=== PATIENT | male | born 1960 | race Caucasian/White ===

== ENCOUNTER 2016-09-30 10:26 | Emergency (ER) | payer SELFPAY ==
[2016-09-30 11:08] VITALS: TEMP 98.7; BMI 29.2
[2016-09-30] MEDS ORDERED: ALBUTEROL 6.7 GM MDI INH ONE (12:00)
--- NOTE | 2016-09-30 12:33 | DIRPT ---
CLINICAL DATA: Cough, shortness of breath and low-grade fever. EXAM: CHEST 2 VIEW COMPARISON: 08/24/2004 FINDINGS: Normal sized heart. Clear lungs. The lungs remain hyperexpanded with mild central peribronchial thickening. Mild thoracic spine degenerative changes. IMPRESSION: No acute abnormality. Stable mild changes of COPD and chronic bronchitis. Electronically Signed By: Jackson Carey M.D. On: 09/30/2016 12:30
--- NOTE | 2016-09-30 12:45 | EDPRACDOC ---
- General Information Chief Complaint: Flu-Like Symptoms Stated Complaint: COUGH/CONGESTION Time Seen by Provider: 09/30/16 11:46 Information Source: Patient Mode Of Arrival: Car Home Medications: Home Medications Acetaminophen with Codeine [TYLENOL WITH CODEINE; [employer] with Codeine] 5 ml PO Q4-6H PRN #120 ml 09/30/16 Amoxicillin Trihydrate [Amoxicillin] 500 mg PO TID #30 tab 09/30/16 Benzonatate [Tessalon] 100 mg PO TID #20 per 09/30/16 Prednisone [Deltasone, Orasone] 2 tabs PO DAILY #20 tab 09/30/16 Allergies/Adverse Reactions: Allergies Allergy/AdvReac Type Severity Reaction Status Date / Time No Known Drug Allergies Allergy Unknown Verified 09/30/16 10:44 - History of Present Illness Symptoms Started: 1 week HPI: PT PRESENTS TODAY WITH COUGH/CONGESTION X 1 WEEK. STATES FEVER THAT BROKE AT THE BEGINNING OF SYMPTOMS. HEAVY SMOKER. DOES NOT FOLLOW PCP. STATES NO PMH /MEDS. NO APPARENT DISTRESS AT THIS TIME. DENIES NESBITT, CP, ABD PAIN, N/V/D. MILD PRESLEY. Symptoms: Reports: Cough, Fever Recent Medications: Reports: None Relevant History Of: Reports: None Shortness of Breath: Mild Cough Frequency: Persistent Cough Description: Reports: Productive (YELLOW), Strong, Congested Rhinorrhea: Reports: None Ear Symptoms: Reports: None Associated Signs and Symptoms: Reports: Cough, Fever, Nasal Symptoms ED Past Medical History - History Reviewed Yes Nurses notes reviewed and agree except as marked - Patient Medical History Psychological History: Denies: Depression - Social Medical History Smoking Status: Heavy tobacco smoker (5 or more cigarettes/day or daily pipe/ cigar) EDM Review of Systems - Review of Systems ROS Negative Except as Marked: Yes All systems reviewed and were negative except as marked Constitutional: Fever, Fatigue Eyes: No Symptoms Reported Ears: No Symptoms Reported Throat: Pain Nose: Congestion Respiratory: Cough Cardiovascular: No Symptoms Reported Gastrointestinal: No Symptoms Reported Neurological: No Symptoms Reported Musculoskeletal: No Symptoms Reported Integumentary: No Symptoms Reported - Physical Exam Constitutional: Alert (Awake), No apparent distress Oriented to: Time, Person, Place Last recorded Vital Signs: Last Vital Signs Temp 98.7 F 09/30/16 11:05 Pulse 87 09/30/16 11:05 Resp 20 09/30/16 11:59 BP 167/83 09/30/16 11:05 Pulse Ox 96 09/30/16 11:05 Oxygen Pulse Oxygen Saturation 96 O2 Device Room Air Oxygen Flow Rate Fraction of Inspired Oxygen ( FIO2) - HEENT Head: Normal Eye Exam: Normal Oropharynx: Normal Tympanic Membrane: Normal Nose: Congestion Neck: Normal, Denies Pain, Midline - Respiratory/Cardiovascular Respiratory: Rhonchi (MODERATE; DIFFUSE) Cardiovascular: Normal - GI Palpation: Normal Tenderness: Non tender - Musculoskeletal Back: Normal Extremities: Normal - Integumentary Skin: Normal Lymphatics: Normal - Neurologic Mood Description: Normal Thought: Coherent Perception: Normal Decision Time to Discharge: 12:50 - Departure Disposition: Home Condition: Stable Final Diagnosis: Bronchopneumonia COPD (chronic obstructive pulmonary disease) Qualifiers: COPD type: unspecified COPD Qualified Code(s): J44.9 - Chronic obstructive pulmonary disease, unspecified Instructions: How to Stop Smoking (ED), Cigarette Smoking and Your Health (GEN) , COPD (Chronic Obstructive Pulmonary Disease) (ED), Community Acquired Pneumonia (ED) Education/Counseling Given To: Patient Education/Counseling Given Regarding: Diagnosis, Treatment, Follow Up Referrals: None,No Provider [Primary Care Provider] - [facility] [NonStaff] - One Week Cuate Monteiro MD [Staff Physician] - One Week Prescriptions: New Acetaminophen with Codeine [TYLENOL WITH CODEINE; [employer] with Codeine] 5 ml PO Q4-6H PRN #120 ml PRN Reason: Pain Amoxicillin Trihydrate [Amoxicillin] 500 mg PO TID #30 tab Prednisone [Deltasone, Orasone] 2 tabs PO DAILY #20 tab Benzonatate [Tessalon] 100 mg PO TID #20 per Additional Instructions: YOU HAVE THE BEGINNINGS OF COPD. THIS IS PERMANENT DAMAGE TO YOUR LUNGS. IT CANNOT BE REVERSED, BUT YOU CAN STOP IT FROM WORSENING IF YOU QUIT SMOKING. PLEASE ESTABLISH A PCP TO HELP YOU MONITOR THIS. REST AND PLENTY OF FLUIDS. FEEL FREE TO RETURN TO ED FOR ANY WORSE/CONCERNING SYMPTOMS.
[2016-09-30 13:04] VITALS: BP 158/79; PULSE 82
== END 2016-09-30 12:59 | disposition home or self-care (01) ==
LOC: ED 10:26 → EDMC 12:59
DX: J18.9 Pneumonia, unspecified organism (principal); J44.9 Chronic obstructive pulmonary disease, unspecified; J44.0 Chronic obstructive pulmonary disease with (acute) lower respiratory infection
CPT/HCPCS: 71020; 94640; 99283; J3490